=== PATIENT | male | born 2005 | race Caucasian/White ===

== ENCOUNTER 2024-10-08 12:35 | Emergency (ER) | payer OTHER ==
[2024-10-08] MEDS: Lidocaine 1% 10 ML MDV INJECT ONE (14:05)
[2024-10-08] MEDS: Ondansetron 4 MG Tab.DIS PO ONE (14:05)
[2024-10-08] MEDS: Bacitracin Oint 1 GM U/D Packet TOP ONE (14:37)
== END 2024-10-08 14:41 | disposition home or self-care (01) ==
LOC: JP.ED 12:35
DX: S81.011A Laceration without foreign body, right knee, initial encounter (principal); W45.8XXA Other foreign body or object entering through skin, initial encounter
CPT/HCPCS: 12001; 99282; Q0162; 99283